=== PATIENT | male | born 1995 | race Caucasian/White ===

== ENCOUNTER 2018-09-30 22:04 | Emergency (ER) | payer OTHER ==
[~2018-09-30] VITALS: Ht 182.9 cm; Wt 107.0 kg
[2018-09-30] MEDS ORDERED: IV NORMAL SALINE 1,000ML 1,000 ML IV ONE (22:15)
--- NOTE | 2018-09-30 22:19 | EKG ---
[address] [address] Test Date: 2018-09-30 Test Time: 22:07:31 Pat Name: JOSE ROBERTO BENDER Department: Room: Gender: M [employer]iling Machine Operator: : 1995 Requested By: MAY RIVERA Order Number: [id number] Reading MD: Freddy Gregory MD Measurements Intervals [place] Rate: 69 P: 53 [place]: 160 QRS: 26 QRSD: 100 T: 28 QT: 454 QTc: 488 Interpretive Statements SINUS RHYTHM PROLONGED QT NON-SPECIFIC ST/T CHANGES Electronically Signed On 10-05-2018 21:49:34 CDT by Freddy Gregory MD
[2018-09-30 22:24] LABS: BASO # 0.1 x10^3/uL (0.0-0.2); BASO % 1 % (0-3); EOS # 0.2 x10^3/uL (0.0-0.7); EOS % 2 % (0-3); HEMATOCRIT 49.9 % (39.0-53.0); HEMOGLOBIN 16.9 g/dL (13.0-17.5); LYMPH # 3.2 x10^3/uL (1.0-4.8); LYMPH % 32 % (24-48); MEAN CORPUSCULAR HEMOGLOBIN 28 pg (25-35); MEAN CORPUSCULAR HGB CONC 34 g/dL (31-37); MEAN CORPUSCULAR VOLUME 83 fL (79-100); MONO # 0.7 x10^3/uL (0.0-1.1); MONO % 7 % (0-9); NEUT # 5.8 x10^3uL (1.8-7.7); NEUT % 58 % (31-73); PLATELET COUNT 276 x10^3/uL (140-400); RED BLOOD COUNT 6.02 x10^6/uL (4.30-5.70); RED CELL DISTRIBUTION WIDTH 14.4 % (11.5-14.5)
--- NOTE | 2018-09-30 22:26 | PHYS DOC ---
Adult General Chief Complaint Chief Complaint: OVERDOSE HPI HPI 22-year-old male presents via EMS with medication overdose. This was an intentional overdose. He took 52 20mg Prozac and 21 50mg trazodone tablets. This was a suicide attempt, but the patient states he no longer wants to . This ingestion was at 2030 hrs. The patient's friend called 911. He has no previous suicide attempts. The patient admits to being nauseous and sleepy. He denies ingesting any other substances. Review of Systems Review of Systems Constitutional: Denies fever or chills [] Eyes: Denies change in visual acuity, redness, or eye pain [] HENT: Denies nasal congestion or sore throat [] Respiratory: Denies cough or shortness of breath [] Cardiovascular: No additional information not addressed in HPI [] GI: Nausea. Denies abdominal pain, vomiting, bloody stools or diarrhea [] : Denies dysuria or hematuria [] Musculoskeletal: Denies back pain or joint pain [] Integument: Denies rash or skin lesions [] Neurologic: Denies headache, focal weakness or sensory changes. Sleepy. [] Endocrine: Denies polyuria or polydipsia [] All other systems were reviewed and found to be within normal limits, except as documented in this note. Current Medications Current Medications Current Medications Medications (Trade) Dose Ordered Sig/Mabel Start Time Stop Time Status Last Admin Dose Admin Sodium Chloride 1,000 ml @ 1,000 mls/hr 1X ONCE 09/30/18 22:15 09/30/18 23:14 UNV Physical Exam Physical Exam Constitutional: Well developed, well nourished, no acute distress, non-toxic appearance. The patient is very sleepy but easily arousable.[] HENT: Normocephalic, atraumatic, bilateral external ears normal, oropharynx moist, no oral exudates, nose normal. [] Eyes: PERRLA, EOMI, conjunctiva normal, no discharge. [] Neck: Normal range of motion, no tenderness, supple, no stridor. [] Cardiovascular:Heart rate regular rhythm, no murmur [] Lungs & Thorax: Bilateral breath sounds clear to auscultation [] Abdomen: Bowel sounds normal, soft, no tenderness, no masses, no pulsatile masses. [] Skin: Warm, dry, no erythema, no rash. [] Back: No tenderness, no CVA tenderness. [] Extremities: No tenderness, no cyanosis, no clubbing, ROM intact, no edema. [] Neurologic: Alert and oriented X 3, normal motor function, normal sensory function, no focal deficits noted. [] Psychologic: Affect depressed. [] EKG EKG Sinus rhythm, rate 69, normal axis, no ST elevations or depressions, QTC 488[] Radiology/Procedures Radiology/Procedures [] Course & Med Decision Making Course & Med Decision Making Pertinent Labs and Imaging studies reviewed. (See chart for details) Patient's initial EKG had a QTC of 488. We did call poison control. They did not advise charcoal therapy. They recommend serial EKGs every 2 hours for at least 3. If the QTC is greater than 500, they recommended giving magnesium. The patient's labs are unremarkable. His urine drug screen is negative. His acetaminophen and salicylate levels are unremarkable. The patient has requested that he be transferred to [facility]. He contacted them and they do not have any beds available. We will transfer the patient to the ICU at [facility]. I discussed the patient with Dr. Veliz and he has accepted the patient for transfer and admission. The patient's repeat EKG showed a similar QTC of 488 and no other significant changes. [] Dragon Disclaimer Dragon Disclaimer This electronic medical record was generated, in whole or in part, using a voice recognition dictation system. Departure Departure: Impression: Primary Impression: Overdose of antidepressant Additional Impression: Suicide attempt Disposition: 02 XFER [facility]M HOSP Condition: GUARDED Problem Qualifiers Primary Impression: Overdose of antidepressant Encounter type: initial encounter Injury intent: intentional self-harm Qualified Codes: T43.202A - Poisoning by unspecified antidepressants, intentional self-harm, initial encounter MAY RIVERA DO Sep 30, 2018 22:26
[2018-09-30 22:32] LABS: ALBUMIN 3.8 g/dL (3.4-5.0); ALBUMIN/GLOBULIN RATIO 1.1 (1.0-1.7); CALCIUM 8.6 mg/dL (8.5-10.1); CREATININE 1.2 mg/dL (0.7-1.3); GFR 75.7; POTASSIUM 3.2 mmol/L (3.5-5.1); TOTAL BILIRUBIN 0.3 mg/dL (0.2-1.0); TOTAL PROTEIN 7.3 g/dL (6.4-8.2)
[2018-09-30 22:39] LABS: SALIC 0.8 mg/dL (2.8-20.0)
[2018-09-30 22:40] LABS: ACETAMIN < 2 mcg/mL (10-30)
[2018-09-30 22:48] LABS: AMPHETAMINE/METHAMPHETAMINE NEG (NEG); BARBITURATES NEG (NEG); BENZODIAZEPINES NEG (NEG); CANNABINOIDS NEG (NEG); COCAINE NEG (NEG); METHADONE NEG (NEG); OPIATES NEG (NEG); PHENCYCLIDINE NEG (NEG)
[2018-09-30 23:10] LABS: BACTERIA,URINE 0 /HPF (0-FEW); BILIRUBIN,URINE NEG (NEG); CLARITY,URINE CLEAR; COLOR,URINE YELLOW; GLUCOSE,URINE NEG (NEG); NITRITE,URINE NEG (NEG); RBC,URINE 0 /HPF (0-2); SQUAMOUS EPITHELIAL CELL,UR OCC /LPF; UROBILINOGEN,URINE 0.2 mg/dL (0.2 mg/dL); WBC,URINE OCC /HPF (0-4)
[2018-09-30] MEDS ORDERED: ONDANSETRON PF 4 MG/2 ML VIAL. IV ONE (23:15)
[2018-10-01 00:30] VITALS: BP 108/53
--- NOTE | 2018-10-01 14:32 | EKG ---
[address] [address] Test Date: 2018-09-30 Test Time: 23:52:22 Pat Name: JOSE ROBERTO BENDER Department: Room: Gender: M National Account Executive: : 1995 Requested By: MAY RIVERA Order Number: [id number] Reading MD: Freddy Gregory MD Measurements Intervals [place] Rate: 75 P: [place]: QRS: 6 QRSD: 94 T: 47 QT: 434 QTc: 488 Interpretive Statements SR NON-SPEIFIC ST/T CHANGES Electronically Signed On 10-05-2018 21:50:18 CDT by Freddy Gregory MD
== END 2018-10-01 01:20 | disposition short-term general hospital (02) ==
LOC: ER 22:04 → EEVIPCON 22:04 → ER 10-01 01:20
DX: T43.222A Poisoning by selective serotonin reuptake inhibitors, intentional self-harm, initial encounter (principal); T43.212A Poisoning by selective serotonin and norepinephrine reuptake inhibitors, intentional self-harm, initial encounter; Y92.89 Other specified places as the place of occurrence of the external cause
CPT/HCPCS: 36415; 80053; 80307; 81001; 83735; 85025; 93005; 96374; 99285; G0480; G6039; J2405; 80329; 82003; J7030